=== PATIENT | male | born 2000 | race African-American/Black ===

== ENCOUNTER 2021-06-07 19:54 | Emergency (ER) | payer OTHER, SELFPAY ==
--- NOTE | ~2021-06-07 | XR_ITS ---
XR chest 1V portable DATE: 06/07/2021 20:36 INDICATION: Cough. Congestion. TECHNIQUE: Portable AP chest on 06/07/2021 at 2031 hours COMPARISON: October 08, 2018 2 view chest FINDINGS: Normal heart size. No hilar or mediastinal enlargement. No pulmonary infiltrate or consolidation, pleural effusion or pulmonary congestion or pneumothorax. IMPRESSION: No active cardiopulmonary disease Reviewed, dictated and finalized at location A.
[2021-06-07 20:04] VITALS: BP 145/90; PULSE 102; RESP 18; TEMP 37.1; O2SAT 98
[2021-06-07 20:13] VITALS: O2SAT 99
--- NOTE | 2021-06-07 20:23 | ED.URI ---
HPI - URI/Sore Throat General Chief Complaint: Upper Respiratory Infection Stated Complaint: congestion and URI symptoms Time Seen by Provider: 06/07/21 20:09 Source: patient Mode of arrival: ambulatory Limitations: no limitations History of Present Illness HPI Narrative: Patient is a 21-year-old male complaining of cough, chest congestion and sore throat for the past 2 days. Patient is concerned that he might have Covid. Patient denies any chest pain, shortness of breath, abdominal pain, nausea, vomiting, diarrhea fever or chills. Related Data Allergies Allergy/AdvReac Type Severity Reaction Status Date / Time No Known Allergies Allergy Verified 06/07/21 20:17 Review of Systems Review of Systems: All systems reviewed & are unremarkable except as noted in HPI and below Constitutional: Constitutional: Reports as per HPI PMFSH Comments Past medical history: None Family history: Unknown Social history: Non-smoker, occasional EtOH use, occasional marijuana use Exam Const: General: cooperative, healthy appearing, comfortable, no acute distress, well developed, alert and awake; No confusion Orientation/consciousness: oriented to person, oriented to place, oriented to time, patient oriented x3 and No confusion Limitations: no limitations HENMT: Head: normal to inspection, normocephalic and atraumatic Ears: hearing grossly normal bilaterally, TM normal on the right and TM normal on the left General nose exam: Normal external nose present, Normal nares present and No nasal discharge present Face and sinus: normal facial exam Mouth: Yes Normal oral and palatal mucosa present, Yes lip normal, Yes tongue normal and Yes oropharynx normal Throat: posterior oropharynx normal, tonsils normal and uvula midline Eyes: General: appearance normal, both eyes and all related structures Pupils: Equal, round and reactive pupils present EOM: EOMs intact bilaterally Neck: Neck: normal visual inspection, full ROM, no lymphadenopathy and no meningeal signs Chest: Chest palpation & inspection: normal inspection of the chest Resp: Effort & Inspection: normal respiratory effort, able to speak in complete sentences, no respiratory distress and not tachypneic Auscultation: clear to auscultation bilaterally, no crackles, no rales, no rhonchi and no wheezes Cardio: Rate: regular rate Rhythm: regular rhythm GI: Inspection: normal to inspection GI Palp: No abdominal tenderness, Yes Soft to palpation, No Tenderness to palpation present (GI), No Guarding due to palpation present (GI), No Rigid due to palpation and No Rebound tenderness present Auscultation: normal bowel sounds : General: Yes no CVA tenderness Back/Spine/Pelvis: Back: no CVA tenderness Skin: General skin exam: normal color, no rashes or lesions noted, elasticity normal and turgor normal Neuro: General: oriented to person, oriented to place, oriented to time, patient oriented x3, tone normal, moves all extremities, Normal light touch and pain sensation, no meningeal signs, no focal motor deficits, CN's II-XI intact bilaterally and No confusion Cranial nerves: Yes Equal, round and reactive pupils present Speech: No Abnormal speech present Sensory Exam: No Sensory deficit (Neuro) Extrem: General: normal to inspection, full ROM and capillary refill normal Psych: Appearance: grossly normal and well kempt Mental Status: mental status grossly normal Speech and movement: Normal speech and movement present Affect: normal affect Attitude: cooperative Thought process: Normal thought process present Thought content: Yes Normal thought content present Insight: Good insight present (Psych) Judgement: Good judgement present (Psych) Course Vital Signs Vital signs: Vital Signs Temperature 37.1 C 06/07/21 20:04 Pulse Rate 102 H 06/07/21 20:04 Respiratory Rate 18 06/07/21 20:04 Blood Pressure 145/90 H 06/07/21 20:04 Pulse Oximetry 98 06/07/21 20:04 Temperature 37
--- NOTE | 2021-06-07 21:02 | ECG_ITS ---
Measurements Intervals [place] Rate: 103 P: 70 DE: 154 QRS: 59 QRSD: 83 T: 60 QT: 326 QTc: 427 Interpretive Statements SINUS TACHYCARDIA ST ELEVATION IN ANTEROLATERAL LEADS, PROBABLY EARLY REPOLARIZATION BASELINE WANDER- AVR, AVL, AVF, V6 BORDERLINE ECG Electronically Signed On 06-07-2021 22:35:37 CDT by Chandler Mreida D.O.
[2021-06-07 21:37] VITALS: BP 140/82; PULSE 100; RESP 16; O2SAT 99
[2021-06-08 19:59] LABS: SARS-CoV-2 RNA PCR Negative
== END 2021-06-07 21:37 | disposition home or self-care (01) ==
PROVIDERS: Emergency Provider Emergency Medicine
DX: J06.9 Acute upper respiratory infection, unspecified (principal); Z20.822 Contact with and (suspected) exposure to COVID-19; R00.0 Tachycardia, unspecified; R94.31 Abnormal electrocardiogram [ECG] [EKG]
CPT/HCPCS: 71045; 93005; 99283; C9803; U0003; U0005